=== PATIENT | female | born 1990 | race Caucasian/White ===

== ENCOUNTER 2016-05-25 13:01 | Emergency (ER) | payer BC ==
[~2016-05-25] VITALS: Ht 157.5 cm; Wt 49.6 kg
[2016-05-25] MEDS ORDERED: CITALOPRAM HBR10 MG PO (13:18)
[2016-05-25 13:36] LABS: HEMATOCRIT 37.7 % (36.0-46.0); MCH 31.9 PG (29.0-34.0); MCHC 33.7 G/DL (30.0-36.0); MCV 94.7 FL (83-99); MEAN PLAT.VOLUME 10.6 uM^3 (9.5-12.4); PLATELET COUNT 207 K/uL (156-360); RBC DIS.WIDTH-CV 12.3 % (11.8-14.6); RBC DIS.WIDTH-SD 43.1 % (39-53); RED BLOOD COUNT 3.98 M/uL (3.80-5.20); WHITE BLOOD COUNT 5.5 K/uL (4.1-10.2)
[2016-05-25 13:47] LABS: CHLORIDE 107 mEq/L (99-109); SODIUM 140 mEq/L (136-147)
[2016-05-25 13:49] LABS: GLUCOSE 81 mg/dL (70-99)
[2016-05-25 13:50] LABS: ANION GAP 7 MEQ/L (2-14)
[2016-05-25 13:52] LABS: GFR ESTIMATE (CALCULATED) > 59 mL/min/
[2016-05-25 13:53] LABS: UREA NITROGEN (BUN) 8 mg/dL (9-23)
[2016-05-25 14:00] LABS: QUANTITATIVE HCG < 4.0 MIU/ML
[2016-05-25 14:19] VITALS: BP 126/64
== END 2016-05-25 14:26 | disposition home or self-care (01) ==
LOC: EME 13:01
PROVIDERS: Nurse Practitioner Family
DX: N93.9 Abnormal uterine and vaginal bleeding, unspecified (principal); Z97.5 Presence of (intrauterine) contraceptive device; R53.83 Other fatigue
CPT/HCPCS: 80048; 84702; 85027; 99281; 99284